=== PATIENT | male | born 1980 ===

== ENCOUNTER 2017-10-17 17:24 | Inpatient (IN) | payer SELFPAY ==
[~2017-10-17] VITALS: Ht 185.4 cm; Wt 72.0 kg
[2017-10-17] MEDS ORDERED: diphenhydrAMINE HCL 50 MG CAP - HS PRN PO (20:00)
[2017-10-17] MEDS ORDERED: ALUMINUM/MAGNESIUM/SIMETH 30 ML CUP PO PRN (20:00)
[2017-10-17] MEDS ORDERED: diphenhydrAMINE HCL 50 MG/ML VIAL - HS PRN IM (20:00)
[2017-10-17] MEDS ORDERED: hydrOXYzine HCL 50 MG TAB PO PRN (20:00)
[2017-10-17] MEDS ORDERED: MAGNESIUM HYDROXIDE SUSP 30 ML CUP PO PRN (20:00)
[2017-10-17] MEDS ORDERED: ACETAMINOPHEN 325 MG TAB PO PRN (20:00)
[2017-10-17 20:13] VITALS: BP 135/67; PULSE 70; RESP 18; TEMP 98.3; O2SAT 96
[2017-10-17] MEDS ORDERED: REMOVE OLD NICOTINE PATCH T-DERMAL SCH (21:00)
[2017-10-18 06:07] VITALS: BP 141/72; PULSE 70; RESP 16; TEMP 97.6; O2SAT 98
[2017-10-18 07:26] LABS: BICARBONATE 31.1 MEQ/L (21.0-32.0); BLOOD UREA NITROGEN 9 MG/DL (7-18); CALCIUM 8.4 MG/DL (8.5-10.1); CHLORIDE 105 MEQ/L (98-107); CHOLESTEROL 174 MG/DL (120-200); CREATININE 0.85 MG/DL (0.60-1.30); GLOMERULAR FILTRATION RATE 102 ML/MIN (>89); GLUCOSE,RANDOM 86 MG/DL (74-106); SODIUM (NA) 140 MEQ/L (136-145); TRIGLYCERIDES 61 MG/DL (42-150)
[2017-10-18 07:30] LABS: CHOLESTEROL/ HDL RATIO 2.51 RATIO; HDL CHOLESTEROL 69.3 MG/DL (40.0-60.0); LDL CHOLESTEROL 93 MG/DL (0-99)
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
[2017-10-18] MEDS ORDERED: NICOTINE 21 MG/24 HR PATCH T-DERMAL SCH (09:00)
[2017-10-18 16:06] LABS: HEMOGLOBIN A1C 5.4 % (4.3-6.0)
--- NOTE | 2017-10-19 14:36 | EKG ---
Date Performed: 10/18/2017 Time Performed: 12:19:41 PTAGE: 36 years EKG: PROBABLE Sinus rhythm WITH LIMB LEAD REVERSAL PRECORDIAL LEADS ARE UNREMARKEABLE BUT THE LIMB LEADS ARE DIFFICULT TO [facility] RET BECAUSE OF THE LIMB LEAD REVERSAL. REPEAT TRACING IS ADVISED THERE IS NO PRIOR FOR COMPARISON. NO PREVIOUS TRACING DOCTOR: Sylvia Clements Interpretating Date/Time 10/19/2017 14:35:23
== END 2017-10-18 13:20 | disposition home or self-care (01) | DRG 882 ==
LOC: H270 19:35
PROVIDERS: ADMIT Psychiatry & Neurology Psychiatry; ATTEND Psychiatry & Neurology Psychiatry
DX: F43.22 Adjustment disorder with anxiety (principal); F10.20 Alcohol dependence, uncomplicated; Z86.718 Personal history of other venous thrombosis and embolism
CPT/HCPCS: 80048; 80061; 83036; 93005